=== PATIENT | female | born 1985 | race Hispanic/Latino ===

== ENCOUNTER 2020-09-04 21:03 | Inpatient (IN) | payer SELFPAY ==
[2020-09-04] MEDS ORDERED: INSULIN REGULAR IN 0.9 % NACL 100 UNIT/100 ML BAG ONE (21:13)
[2020-09-04] MEDS ORDERED: Ketamine 50 MG/ML (10ML VIAL) ONE ×3 (21:19→22:15)
[2020-09-04 21:37] LABS: Hemoglobin 12.6 g/dL (12.0-15.5); Mean Corpuscular HGB CONC 30.7 g/dL (32.0-36.0); Mean Corpuscular Hemoglobin 28.8 pg (27.0-33.0); Mean Corpuscular Volume 93.8 fl (81.6-98.3); Platelet Count 375 10x3/uL (150-450); RBC Distribution Width 13.2 % (11.5-14.5); Red Blood Cell (RBC) Count 4.37 10x6/uL (3.90-5.03); White Blood Cell (WBC) Count 20.2 10x3/uL (3.5-10.5)
[2020-09-04] MEDS ORDERED: Benzocaine 20% Spray 60 ML CAN ONE (21:49)
[2020-09-04] MEDS ORDERED: Propofol 1,000 MG/100 ML VIAL IV ONE (21:50)
[2020-09-04 21:56] LABS: BHCG - Serum Negative (NEGATIVE); Pregs Control Background? CLEAR/WHITE (CLR/WHITE); Pregs Control Bar Appear? YES (CONTROL BAR)
[2020-09-04 21:59] LABS: ALT (SGPT) 38 U/L (8-55); AST (SGOT) 75 U/L (5-34); Albumin 3.5 g/dL (3.5-5.0); Alkaline Phosphatase 147 U/L (40-110); Anion Gap 26 mmol/L (10-20); BUN (Urea Nitrogen) 9 mg/dL (7.0-18.7); Bilirubin, Total 0.5 mg/dL (0.2-1.2); Calc. Creatinine Clearance 0 mL/min (70-130); Calcium 8.2 mg/dL (7.8-10.44); Carbon Dioxide 16 mmol/L (22-29); Chloride 99 mmol/L (98-107); Globulin 3.4 g/dL (2.4-3.5); Glucose 482 mg/dL (70-105); Potassium 4.2 mmol/L (3.5-5.1); Protein, Total 6.9 g/dL (6.0-8.3); Sodium 137 mmol/L (136-145)
[2020-09-04] MEDS ORDERED: Dexamethasone 10 MG/ML VIAL ONE (22:04)
[2020-09-04 22:15] LABS: Band 7 % (5-11); Lymphocytes 23 % (21-51); Monocytes 4 % (0-10); Myelocyte 1 % (0-0); Nucleated RBC 3 % (0); Reactive Lymphocytes 2 % (0-10)
[2020-09-04 22:16] LABS: Neutrophil 63 % (42-75); Platelet Morphology Comment Appears Adequate
[2020-09-04 22:17] LABS: Dohle Bodies SLIGHT; Toxic Granulation SLIGHT; Vacuoles SLIGHT
[2020-09-04] MEDS ORDERED: Fentanyl 100 MCG/2 ML VIAL ONE ×3 (22:23→23:06)
[2020-09-04 22:54] LABS: SARS-CoV-2 NAA Rapid Test DETECTED (NotDetected)
[2020-09-04 23:13] LABS: CO2 Tension 30.9 mmHg (35.0-45.0); pH, Arterial 7.28 (7.35-7.45)
[2020-09-04 23:14] LABS: Actual Bicarbonate (HCO3a) 14.1 mEq/L (22-28); Base Excess (BEa) -11.4 mEq/L (-2.0 to +3.0); Calcium, Ionized (arterial) 1.13 mmol/L (1.12-1.30); Carboxyhemoglobin (COHb) 0.6 gm% (0.0-3.0); Hemoglobin (Hb) 13.1 g/dL (12.0-16.0); O2 Tension (PaO2), arterial 29.2 mmHg (80.0-100.0); Potassium - ABG Lab 4.3 mmol/L (3.70-5.30)
[2020-09-04 23:15] LABS: Puncture Site RRA
[2020-09-04 23:16] LABS: ALV-art Gradient 645.175 mmHg (0-20)
[2020-09-04] MEDS ORDERED: fentaNYL Citrate/PF 50 MCG/ML (20ML VIAL) ONE (23:19)
[2020-09-04] MEDS ORDERED: Acetaminophen 650 MG Suppository ONE (23:22)
[2020-09-04 23:23] LABS: Bilirubin Neg (Negative); Blood, Urine 25 (Negative); Clarity Clear (Clear); Glucose, Urine (Dipstick) >=1000 mg/dL (Negative); Ketone, Urine 50 mg/dL (Negative); Leukocyte Negative (Negative); Nitrite Negative (Negative); Protein, Urine (Dipstick) 30 mg/dl (Neg-Trace); Specific Gravity, Urine 1.015 (1.002-1.036); Urobilinogen Normal mg/dL (Less than 2)
[2020-09-04 23:23] LABS: Actual Bicarbonate (HCO3a) 15.5 mEq/L (22-28); Base Excess (BEa) -13.2 mEq/L (-2.0 to +3.0); CO2 Tension 46.4 mmHg (35.0-45.0); Calcium, Ionized (arterial) 1.18 mmol/L (1.12-1.30); Carboxyhemoglobin (COHb) 0.2 gm% (0.0-3.0); Hemoglobin (Hb) 12.7 g/dL (12.0-16.0); O2 Tension (PaO2), arterial 57.1 mmHg (80.0-100.0); Potassium - ABG Lab 5.3 mmol/L (3.70-5.30); Puncture Site RRA; pH, Arterial 7.14 (7.35-7.45)
[2020-09-04 23:34] LABS: Squamous Epithelial 0-3 HPF (0-3); WBC/HPF 0-3 HPF (0-3)
[2020-09-04 23:36] LABS: Bacteria/HPF 1+ HPF (None Seen); Mucous/LPF 1+ LPF (<2+)
[2020-09-04 23:39] LABS: Transitional Epithelial 0-3 HPF (None Seen)
[2020-09-05] MEDS ORDERED: D5 1/2 NS w/20 mEq KCL 1,000 ML IV PRN (00:19)
[2020-09-05] MEDS ORDERED: Electrolyte Replacement Protocol 1 EACH IVPB ONE (00:19)
[2020-09-05] MEDS ORDERED: Dextrose 5 %-0.45 % NaCl 1,000 ML IV PRN (00:19)
[2020-09-05] MEDS ORDERED: NS 0.9% w/ 20 MEQ KCL 1,000 ML IV PRN (00:19)
[2020-09-05] MEDS ORDERED: Sodium Chloride 0.9% 1,000 ML IV PRN (00:19)
[2020-09-05] MEDS ORDERED: Rocuronium Bromide 10 MG/ML (10ML VIAL) IVP SCH (00:45)
[2020-09-05] MEDS ORDERED: Propofol 1,000 MG/100 ML VIAL IV PRN (00:58)
[2020-09-05 00:59] LABS: Phosphorus 4.4 mg/dL (2.3-4.7)
[2020-09-05] MEDS ORDERED: cefTRIAXone\\ROCEPHIN 2 GM in Sodium Chloride 0.9% 100 ML IVPB SCH (01:00)
[2020-09-05] MEDS ORDERED: Electrolyte Replacement Protocol FS PRN (01:00)
[2020-09-05] MEDS ORDERED: INSULIN REGULAR IN 0.9 % NACL 100 UNIT in Premix Bag 1 BAG IVPB SCH (01:00)
[2020-09-05 01:01] LABS: Anion Gap 23 mmol/L (10-20); BUN (Urea Nitrogen) 10 mg/dL (7.0-18.7); Calc. Creatinine Clearance 0 mL/min (70-130); Calcium 7.6 mg/dL (7.8-10.44); Carbon Dioxide 16 mmol/L (22-29); Chloride 105 mmol/L (98-107); Glucose 335 mg/dL (70-105); Magnesium 2.1 mg/dL (1.6-2.6); Potassium 5.6 mmol/L (3.5-5.1); Sodium 138 mmol/L (136-145)
[2020-09-05 01:05] LABS: Critical Call Chem-Lactate D; Lactic Acid 8.8 mmol/L (0.5-2.2)
[2020-09-05 01:12] LABS: Troponin I 0.436 ng/mL (< 0.028)
[2020-09-05 01:15] VITALS: BMI 38.5
[2020-09-05] MEDS ORDERED: Vecuronium 10 MG VIAL IV SCH (01:15)
[2020-09-05] MEDS ORDERED: Vecuronium Bromide 50 MG in Sodium Chloride 0.9% 250 ML 250 ML IV SCH (01:15)
[2020-09-05] MEDS ORDERED: Norepinephrine 8 MG/0.9% NS 250 ML ONE ×3 (01:30→10:07)
[2020-09-05] MEDS ORDERED: Azithromycin 500 MG in Sodium Chloride 0.9% 250 ML 250 ML IVPB SCH (02:00)
[2020-09-05 03:11] LABS: Mean Corpuscular HGB CONC 29.9 g/dL (32.0-36.0); Mean Corpuscular Hemoglobin 28.6 pg (27.0-33.0); Mean Corpuscular Volume 95.8 fl (81.6-98.3); Platelet Count 208 10x3/uL (150-450); RBC Distribution Width 13.8 % (11.5-14.5); Red Blood Cell (RBC) Count 4.54 10x6/uL (3.90-5.03); White Blood Cell (WBC) Count 33.3 10x3/uL (3.5-10.5)
[2020-09-05 03:20] LABS: Anion Gap 26 mmol/L (10-20)
[2020-09-05 03:29] LABS: BUN (Urea Nitrogen) 11 mg/dL (7.0-18.7); Calc. Creatinine Clearance 77 mL/min (70-130); Calcium 7.5 mg/dL (7.8-10.44); Carbon Dioxide 13 mmol/L (22-29); Chloride 106 mmol/L (98-107); Glucose 210 mg/dL (70-105); Sodium 139 mmol/L (136-145)
[2020-09-05] MEDS ORDERED: Lactated Ringer's 1,000 ML IV SCH (03:30)
[2020-09-05] MEDS: Phenylephrine 40 MG in Sodium Chloride 0.9% 250 ML 250 ML IVPB SCH ×2 (04:00→06:45)
[2020-09-05] MEDS ORDERED: Albuterol Sulfate 2.5 mg/0.5 ml Neb ONE (05:00)
[2020-09-05] MEDS ORDERED: Calcium Gluc 4.6 MEQ/10 ML (100 MG/ML) SLOW IVP SCH (05:45)
[2020-09-05 07:38] LABS: Actual Bicarbonate (HCO3a) 6.5 mEq/L (22-28); CO2 Tension 47.6 mmHg (35.0-45.0); Calcium, Ionized (arterial) 1.08 mmol/L (1.12-1.30); Carboxyhemoglobin (COHb) 0.3 gm% (0.0-3.0); Hemoglobin (Hb) 13.9 g/dL (12.0-16.0); O2 Tension (PaO2), arterial 89.9 mmHg (80.0-100.0); Potassium - ABG Lab 6.4 mmol/L (3.70-5.30); Puncture Site LRA; pH, Arterial 6.76 (7.35-7.45)
[2020-09-05] MEDS ORDERED: Sodium Bicarb 50 MEQ/50 ML VIAL ONE ×4 (07:55→09:59)
[2020-09-05] MEDS: Sodium Bicarbonate 150 MEQ in Dextrose 5% in Water 1,000 ML IV SCH ×2 (08:00→08:40)
[2020-09-05] MEDS ORDERED: EPINEPHrine 4 MG in Dextrose 5% in Water 250 ML IV SCH (08:15)
[2020-09-05] MEDS: Sodium Bicarb 50 MEQ/50 ML VIAL IVP SCH ×2 (08:30→09:00)
[2020-09-05] MEDS ORDERED: Cholecalciferol 1,000 UNITS (25 MCG) TAB PER TUBE SCH (09:00)
[2020-09-05] MEDS ORDERED: Pantoprazole 40 MG VIAL IVP SCH (09:00)
[2020-09-05] MEDS ORDERED: Dexamethasone 20 MG/5 ML VIAL SLOW IVP SCH (09:00)
[2020-09-05] MEDS ORDERED: Enoxaparin Sodium 40 MG/0.4 ML SYRINGE SC SCH (09:00)
[2020-09-05] MEDS ORDERED: REMDESIVIR (EUA) 200 MG in Sodium Chloride 0.9% 250 ML 210 ML IV SCH (09:00)
[2020-09-05] MEDS ORDERED: Zinc Sulfate 220 MG CAP PER TUBE SCH (09:00)
[2020-09-05] MEDS ORDERED: Fentanyl CADD 100 ML ONE (09:04)
[2020-09-05] MEDS ORDERED: Heparin 25,000 units/D5W 500 ML IVPB SCH (09:15)
[2020-09-05] MEDS ORDERED: Heparin 10,000 UNITS/ 10 ML VIAL SLOW IVP SCH (09:15)
[2020-09-05 09:21] LABS: Anion Gap 28 mmol/L (10-20); BUN (Urea Nitrogen) 11 mg/dL (7.0-18.7); Calc. Creatinine Clearance 53 mL/min (70-130); Calcium 6.6 mg/dL (7.8-10.44); Carbon Dioxide 14 mmol/L (22-29); Chloride 108 mmol/L (98-107); Glucose 178 mg/dL (70-105); Magnesium 2.8 mg/dL (1.6-2.6); Potassium 5.4 mmol/L (3.5-5.1); Sodium 145 mmol/L (136-145)
[2020-09-05 09:29] LABS: Troponin I 2.214 ng/mL (< 0.028)
[2020-09-05] MEDS ORDERED: Hydrocortisone Sod Succ/PF 100 mg/2 ml Vial IVP SCH (09:30)
[2020-09-05] MEDS ORDERED: Sodium Bicarbonate 150 MEQ in Dextrose 5% in Water 1,000 ML IV SCH ×2 (09:30→11:00)
[2020-09-05 09:47] LABS: Hemoglobin 11.4 g/dL (12.0-15.5)
[2020-09-05 09:48] LABS: Platelet Count 99 10x3/uL (150-450)
[2020-09-05] MEDS ORDERED: Albumin 25% 200 ML ONE (09:57)
[2020-09-05] MEDS ORDERED: Atropine Sulfate 1 mg/10 ml Syringe ONE (10:08)
[2020-09-05 10:15] LABS: PTT 84.8 sec (22.0-33.0)
[2020-09-05 10:24] LABS: Actual Bicarbonate (HCO3a) 16.6 mEq/L (22-28); Base Excess (BEa) -18.6 mEq/L (-2.0 to +3.0); CO2 Tension 112.8 mmHg (35.0-45.0); Calcium, Ionized (arterial) 1.61 mmol/L (1.12-1.30); Carboxyhemoglobin (COHb) 0.3 gm% (0.0-3.0); Hemoglobin (Hb) 9.9 g/dL (12.0-16.0); Potassium - ABG Lab 4.2 mmol/L (3.70-5.30); Puncture Site Other Site; pH, Arterial 6.79 (7.35-7.45)
[2020-09-05 11:56] VITALS: BP 64/50
[2020-09-06] MEDS ORDERED: REMDESIVIR (EUA) 100 MG in Sodium Chloride 0.9% 250 ML 230 ML IV SCH (09:00)
[2020-09-06 17:03] LABS: O2 Tension (PaO2), arterial 16.8 mmHg (80.0-100.0)
== END 2020-09-05 10:15 | disposition expired | DRG 871 ==
LOC: CSHERS 21:03 → CSHICU 09-05 00:30
PROVIDERS: ADMIT Family Medicine; ATTEND Internal Medicine
PROC: 0BH17EZ Insertion of Endotracheal Airway into Trachea, Via Natural or Artificial Opening (ICD-10-PCS; principal; 2020-09-05)
PROC: 5A1935Z Respiratory Ventilation, Less than 24 Consecutive Hours (ICD-10-PCS; 2020-09-05)
PROC: 3E053XZ Introduction of Vasopressor into Peripheral Artery, Percutaneous Approach (ICD-10-PCS; 2020-09-05)
PROC: 02HV33Z Insertion of Infusion Device into Superior Vena Cava, Percutaneous Approach (ICD-10-PCS; 2020-09-05)
PROC: 5A12012 Performance of Cardiac Output, Single, Manual (ICD-10-PCS; 2020-09-05)
PROC: 8E0ZXY6 Isolation (ICD-10-PCS; 2020-09-05)
PROC: B548ZZA Ultrasonography of Superior Vena Cava, Guidance (ICD-10-PCS; 2020-09-05)
DX: A41.89 Other specified sepsis (principal); E11.10 Type 2 diabetes mellitus with ketoacidosis without coma; U07.1 COVID-19; J12.82 Pneumonia due to coronavirus disease 2019; J80 Acute respiratory distress syndrome; N17.0 Acute kidney failure with tubular necrosis; R65.21 Severe sepsis with septic shock; E87.2 Acidosis; E66.01 Morbid (severe) obesity due to excess calories; E87.5 Hyperkalemia; Z79.4 Long term (current) use of insulin; Z68.38 Body mass index [BMI] 38.0-38.9, adult
CPT/HCPCS: 0240U; 36415; 36416; 36600; 51702; 71045; 80048; 80053; 81003; 81015; 82010; 82805; 83605; 83735; 83880; 84100; 84484; 84703; 85025; 85027; 85730; 87040; 87086; 93005; 94003; 94760; 96365; 96366; 96368; 96375; 96376; 99292; J0171; J0456; J0696; J1100; J2001; J2370; J2704; J3010; J3490; J7050; J7070; J7611; P9047